=== PATIENT | male | born 1950 | race Caucasian/White ===

== ENCOUNTER 2018-05-14 08:48 | Emergency (ER) | payer SELFPAY ==
[~2018-05-14] VITALS: Ht 180.3 cm; Wt 90.0 kg
[2018-05-14] MEDS ORDERED: VISCOUS LIDOCAINE 2% 15 ML UDC PO STA (09:42)
[2018-05-14] MEDS ORDERED: MAGNESIUM/ALUMINUM HYDROXIDE/SIMETHICONE 30ML UDC PO STA (09:42)
[2018-05-14] MEDS ORDERED: ONDANSETRON HCL 4MG/2ML VIAL IV ONE (09:45)
[2018-05-14 12:00] LABS: BASOPHILS % 0.3 % (0.0-2.0); EOSINOPHILS % 0.3 % (0.0-5.0); HEMATOCRIT. 40.1 % (42.0-52.0); HEMOGLOBIN. 13.6 g/dL (14.0-18.0); MEAN CORPUSCULAR HEMOGLOBIN 29.8 pg (28.0-32.0); MEAN CORPUSCULAR VOLUME 87.8 fL (80.0-94.0); MEAN PLATELET VOLUME 9.9 fl (7.4-10.4); MONOCYTES % 4.4 % (2.0-8.0); PLATELET 201 x1000/uL (130-400); RED BLOOD CELL COUNT 4.57 mill/uL (4.7-6.1); RED CELL DISTRIBUTION WIDTH 13.5 % (11.6-14.6)
[2018-05-14 12:06] LABS: CHLORIDE 107 mEq/L (98-107)
[2018-05-14 12:14] LABS: ETHANOL BLOOD < 10 mg/dL
[2018-05-14 12:54] VITALS: BP 131/67
== END 2018-05-14 12:56 | disposition home or self-care (01) ==
LOC: ER 08:48
DX: K29.70 Gastritis, unspecified, without bleeding (principal); R42 Dizziness and giddiness; E78.00 Pure hypercholesterolemia, unspecified
CPT/HCPCS: 36415; 71045; 76705; 80053; 83690; 84484; 85025; 85610; 93005; 96374; 99285; G0482; J2405; J7040; Z7610